=== PATIENT | female | born 1970 | race Caucasian/White ===

== ENCOUNTER 2019-03-14 14:10 | Outpatient (CLI) | payer OTHER ==
--- NOTE | 2019-03-14 14:21 | RAD ---
Right clavicle 2 views HISTORY: Clavicle enlargement. FINDINGS: Acromioclavicular alignment is within normal limits. The second view shows a somewhat rotat ed appearance of the clavicle which may account for a palpable at the near the central shaft. The cortex is intact. No focal osseous lesions or soft tissue abnormalities are apparent. IMPRESSION: No significant abnormalities are demonstrated.
== END 2019-03-14 14:11 | disposition home or self-care (01) ==
LOC: RAD-FRANK 14:10
PROVIDERS: ATTEND Internal Medicine
DX: M89.311 Hypertrophy of bone, right shoulder (principal)